=== PATIENT | female | born 1940 | race Caucasian/White ===

== ENCOUNTER → 2017-01-29 | Outpatient (CLI) | payer MEDICARE, OTHER ==
[2017-01-29 08:00] LABS: Basophils % (A) 1 %; CH 31.1; CHCM 33.2; Eosinophils # (A) 0.1 k/uL (0-0.7); Eosinophils % (A) 2 %; HCT 40.2 % (34.0-46.0); HDW 2.23; Luc # (Auto) 0.14; Luc % (Auto) 4; Lymphocytes % (A) 26 %; MCH 30.5 pg (25.0-35.0); MCHC 32.4 g/dL (31.0-37.0); MCV 94.2 fL (80.0-100.0); Mean Platelet Volume 6.2; Monocytes # (A) 0.3 k/uL (0-1.0); Monocytes % (A) 8 %; Neutrophils # (A) 2.2 k/uL (1.3-7.7); Neutrophils % (A) 60 %; RBC 4.27 m/uL (3.80-5.40); RDW 13.3 % (11.5-15.5); WBC 3.6 k/uL (3.8-10.6); WBC (Perox) 3.92
[2017-01-29 10:34] LABS: ALT 39 U/L (9-52); AST 25 U/L (14-36); Alkaline Phosphatase 62 U/L (38-126); Anion Gap 7 mmol/L; Blood Urea Nitrogen 16 mg/dL (7-17); Calcium 9.6 mg/dL (8.4-10.2); Carbon Dioxide 30 mmol/L (22-30); Chloride 98 mmol/L (98-107); Creatine Kinase 56 U/L (30-135); Glucose 82 mg/dL (74-99); Non-African American GFR(MDRD) >60 (>60 ml/min/1.73 sqM); Potassium 4.5 mmol/L (3.5-5.1); Sodium 135 mmol/L (137-145); Total Bilirubin 0.7 mg/dL (0.2-1.3); Total Protein 6.9 g/dL (6.3-8.2)
== END | disposition home or self-care (01) ==
LOC: LABWHC1 07:07
PROVIDERS: ATTEND Family Medicine
DX: E28.1 Androgen excess (principal); E03.9 Hypothyroidism, unspecified; H35.30 Unspecified macular degeneration
CPT/HCPCS: 36415; 80053; 82550; 82627; 84403; 84439; 84443; 85025

== ENCOUNTER → 2017-09-14 | Outpatient (CLI) | payer MEDICARE, OTHER ==
[2017-09-14 07:52] LABS: Basophils % (A) 1 %; CH 31.3; CHCM 32.5; Eosinophils % (A) 1 %; HCT 42.1 % (34.0-46.0); HDW 2.14; HGB 13.5 gm/dL (11.4-16.0); Luc # (Auto) 0.11; Luc % (Auto) 2; Lymphocytes # (A) 1.2 k/uL (1.0-4.8); Lymphocytes % (A) 23 %; MCH 31.1 pg (25.0-35.0); MCHC 32.2 g/dL (31.0-37.0); MCV 96.6 fL (80.0-100.0); Mean Platelet Volume 6.4; Monocytes # (A) 0.4 k/uL (0-1.0); Monocytes % (A) 7 %; Neutrophils # (A) 3.5 k/uL (1.3-7.7); Neutrophils % (A) 67 %; RBC 4.36 m/uL (3.80-5.40); RDW 13.3 % (11.5-15.5); WBC 5.2 k/uL (3.8-10.6); WBC (Perox) 5.11
[2017-09-14 08:10] LABS: ALT 34 U/L (9-52); AST 22 U/L (14-36); Alkaline Phosphatase 59 U/L (38-126); Anion Gap 7 mmol/L; Blood Urea Nitrogen 20 mg/dL (7-17); Calcium 9.6 mg/dL (8.4-10.2); Carbon Dioxide 28 mmol/L (22-30); Chloride 97 mmol/L (98-107); Cholesterol 185 mg/dL (<200); Glucose 88 mg/dL (74-99); HDL Cholesterol 95 mg/dL (40-60); Magnesium 1.6 mg/dL (1.6-2.3); Non-African American GFR(MDRD) >60 (>60 ml/min/1.73 sqM); Potassium 4.5 mmol/L (3.5-5.1); Sodium 132 mmol/L (137-145); Total Bilirubin 0.5 mg/dL (0.2-1.3); Total Protein 6.9 g/dL (6.3-8.2)
--- NOTE | 2017-09-16 10:19 | MM ---
Reason for exam: screening (asymptomatic). Last mammogram was performed 1 year ago. History: Patient is postmenopausal. Benign excisional biopsy of the right breast, 2002. Took estrogen for 26 years beginning at age 42. Physical Findings: A clinical breast exam by your physician is recommended on an annual basis and results should be correlated with mammographic findings. MG 3D Screening Mammo W/Cad Bilateral CC and MLO view(s) were taken. Prior study comparison: September 12, 2016, bilateral MG 3d screening mammo w/cad. September 10, 2015, bilateral MG screening mammo w CAD. There are scattered fibroglandular densities. No significant changes when compared with prior studies. ASSESSMENT: Negative, BI-RAD 1 RECOMMENDATION: Routine screening mammogram of both breasts in 1 year.
== END | disposition home or self-care (01) ==
LOC: RADMAMWWP 07:00
PROVIDERS: ATTEND Family Medicine
DX: Z12.31 Encounter for screening mammogram for malignant neoplasm of breast (principal); M89.9 Disorder of bone, unspecified; M85.9 Disorder of bone density and structure, unspecified; E28.1 Androgen excess; N39.3 Stress incontinence (female) (male); E78.00 Pure hypercholesterolemia, unspecified; Z78.0 Asymptomatic menopausal state
CPT/HCPCS: 80061; 80053; 82626; 82607; 83735; 84443; 85025; 82306; 84403; 83036; 77063; 36415; G0202

== ENCOUNTER → 2019-04-21 | Outpatient (CLI) | payer MEDICARE, OTHER ==
--- NOTE | 2019-04-22 07:11 | US ---
EXAMINATION TYPE: US carotid duplex BILAT DATE OF EXAM: 04/21/2019 COMPARISON: NONE CLINICAL HISTORY: I65.22 STENOSIS OF LT CAROTID ARTERY. Patient denies symptoms at this time. EXAM MEASUREMENTS: RIGHT: Peak Systolic Velocity (PSV) cm/sec ----- Right CCA: 71.0 ----- Right ICA: 63.6 ----- Right ECA: 66.0 ICA/CCA ratio: 0.9 RIGHT: End Diastole cm/sec ----- Right CCA: 13.8 ----- Right ICA: 9.5 ----- Right ECA: 0.0 LEFT: Peak Systolic Velocity (PSV) cm/sec ----- Left CCA: 50.3 ----- Left ICA: 82.0 ----- Left ECA: 34.3 ICA/CCA ratio: 1.6 LEFT: End Diastole cm/sec ----- Left CCA: 0.0 ----- Left ICA: 16.0 ----- Left ECA: 0.0 VERTEBRALS (direction of flow): Right Vertebral: Antegrade Left Vertebral: Antegrade Rhythm: Normal Irregular intimal wall thickening is noted at bilateral carotid bifurcation, but PSV is wnl bilateral ly. IMPRESSION: Moderate degree of grayscale atheromatous plaquing with no sonographically evident hemod ynamically significant stenosis within either visualized carotid arterial system. Criteria for Assigning % of Stenosis / Diameter reduction (Estimation based on the indirect measurements of the internal carotid artery velocities (ICA PSV). 1. Normal (no stenosis)=ICA PSV < 125 cm/s: ratio < 2.0: ICA EDV<40 cm/s. 2. Less than 50% stenosis=ICA PSV < 125 cm/s: ratio < 2.0: ICA EDV<40 cm/s. 3. 50 to 69% stenosis=ICA PSV of 125 to 230 cm/s: ration 2.0 ? 4.0: ICA EDV 40-100 cm/s. 4. Greater than 70% stenosis to near occlusion= ICA PSV > 230 cm/s: ratio > 4.0: ICA EDV > 100 cm/s. 5. Near occlusion= ICA PSV velocities may be low or undetectable: variable ratio and ICA EDV. 6. Total occlusion=unable to detect flow.
== END | disposition home or self-care (01) ==
LOC: RADUSWWP 15:42
PROVIDERS: ATTEND Family Medicine
DX: I67.2 Cerebral atherosclerosis (principal)
CPT/HCPCS: 93880

== ENCOUNTER 2021-05-23 15:19 | Emergency (ER) | payer MEDICARE, OTHER ==
[2021-05-23] MEDS ORDERED: MORPHINE SULFATE 2 MG/ML SYRINGE IVP STA (16:21)
--- NOTE | 2021-05-23 16:27 | ED ---
General Adult HPI - General Chief complaint: Altered Mental Status Stated complaint: Fall, hurting all over Time Seen by Provider: 05/23/21 16:15 Source: patient, family, RN notes reviewed, old records reviewed Mode of arrival: wheelchair Limitations: no limitations - History of Present Illness Initial comments: Patient is an 81-year-old female with past medical history remarkable for hypertension, thyroid disorder presents emergency department after being sent by her PCP. Patient's PCP, Dr. Rojo, called ahead to the patient fell on the May and had prior workups including CT head as well as multiple x- rays and [facility] with her normal period since that time, patient's been feeling more fatigued and will be intermittently having altered mental status where she curls up on the bed. Normally she is alert and oriented 4 and p erforms her normal ADLs. Since that time, she is complaining primarily of lower back pain, as well as some urinary retention. At the office today, hemoglobin was found to be low and creatinine high he sent her to the emergency department for Thomas placement, and neuro evaluation, as was a GI consult about the possibility of GI bleeding. We speak with patient currently, she is alert and oriented 4. She states she has no complaints other than some generalized abdominal pain. She is uncertain when she last had a bowel movement. She is also going of lower lumbar spine tenderness to palpation. She is otherwise able to move all 4 extremities, and states just a generalized feeling of fatigue. She has no other acute complaints at this time. Denies any fevers, chills, sick contacts. Denies any chest pain, shortness of breath. Denies any nausea or vomiting. - Related Data Home Medications Medication Instructions Recorded Confirmed Acetaminophen-Codeine 300-30mg 1 tab PO Q6H PRN 05/23/21 05/23/21 [Tylenol w/codeine #3] Ibuprofen [Motrin] 600 mg PO Q8HR PRN 05/23/21 05/23/21 Latanoprost [Xalatan 0.005%] 1 drop BOTH EYES HS 05/23/21 05/23/21 Oxybutynin Chloride [Ditropan] 2.5 mg PO BID 05/23/21 05/23/21 Allergies Allergy/AdvReac Type Severity Reaction Status Date / Time No Known Allergies Allergy Verified 07/15/21 17:21 Review of Systems ROS Statement: Those systems with pertinent positive or pertinent negative responses have been documented in the HPI. Review of Systems: CONST: Endorses fatigue EYES: Denies blurry vision ENT: Denies nasal congestion C/V: Denies Chest pain RESP: Denies shortness of breath GI: Endorses abdominal pain : Denies dysuria SKIN: Denies rash. MSK: Endorses lower back pain NEURO: Denies headache ROS Other: All systems not noted in ROS Statement are negative. Past Medical History Past Medical History: Thyroid Disorder History of Any Multi-Drug Resistant Organisms: None Reported Past Surgical History: Appendectomy, Hysterectomy Past Psychological History: No Psychological Hx Reported Smoking Status: Never smoker Past Alcohol Use History: None Reported Past Drug Use History: None Reported General Exam - General Exam Comments Initial Comments: General: Patient is curled up in a ball inside a building complaining of back pain. HEAD: Normal with no signs of head trauma. EYES: PERRLA, EOMI, conjunctiva normal, no discharge. Pupils are 3 mm and reactive bilaterally. ENT: Hearing grossly intact, normal oropharynx. RESPIRATORY: Clear breath sounds bilaterally. No wheezes, rales, or rhonchi. C/V: Regular rate and rhythm. S1 and S2 auscultated, no edema, peripheral pulses 2+ and intact throughout ABD: Abdomen is soft, nondistended. There is no guarding. Patient is tender to palpation generally, however primarily in the epigastric region. EXT: Patient is normal range of motion of all 4 extremities without any obvious deformity. She has no cervical or thoracic spine tenderness to palpation but does have lower lumbar spine tenderness to palpation in the midline. SKIN: Has a healing abrasion on the posterior scalp. Yamilet have been removed. NEURO: Alert and oriented 4. No focal sensory deficits at this time. She has no saddle anesthesias. Cerebellar function is normal as evident by normal finger-nose testing.weakness of BLLE 4/5. Limitations: no limitations Course Vital Signs 05/23/21 15:31 Temperature 98.1 F Pulse Rate 81 Respiratory 20 Rate Blood Pressure 129/62 O2 Sat by Pulse 97 Oximetry Medical Decision Making - Medical Decision Making Based on the patient's presentation and physical exam, we will obtain basic laboratory studies as well as cardiac workup in troponin, EKG, chest x-ray. The patient's nonspecific abdominal pain also obtain urine studies as well as a CT abdomen and pelvis. Patient will be given morphine for pain management, patient will receive a 1 L fluid bolus. We will place Thomas catheter that she is retaining urine. There agreement this plan. Patient's temperature studies are relatively unremarkable except for a mildly K high with an elevated BUN/creatinine 31 and 24.22. Patient's sodium is also mildly decreased at 135. She is not anemic is concerned by her PCP. Therefore I do not believe that a GI consult is quite at this time. Patient's urinalysis was remarkable for 1+ ketones. No signs of infection. Troponin is negative. Patient's chest x-ray shows no acute cardio pulmonary process. CT imaging was remarkable for no acute intra-abdominal process but there is a mildly displaced sacral fracture. EKG was unremarkable. Physical fracture, and with the patient's bilateral lower extremity weakness as well as her urinary retention concern me for possible cauda equina syndrome. We do not have neurosurgery in-house here or the ability to obtain an MRI and therefore I recommend the patient be transferred to [facility]. I spoke with the patient and her family member in agreement with this plan. I spoke with [facility] and they accepted the patient. Excepting physician is Dr. Lynne. Patient was therefore transferred to [facility] and serous condition. - Lab Data Result diagrams: 05/23/21 16:24 05/23/21 16:24 Lab Results 05/23/21 05/23/21 05/23/21 Range/Units 16:24 16:24 16:24 WBC 7.4 (3.8-10.6) k/uL RBC 3.87 (3.80-5.40) m/uL Hgb 12.0 (11.4-16.0) gm/dL Hct 35.3 (34.0-46.0) % MCV 91.1 (80.0-100.0) fL MCH 31.1 (25.0-35.0) pg MCHC 34.1 (31.0-37.0) g/dL RDW 13.2 (11.5-15.5) % Plt Count 270 (150-450) k/uL MPV 6.6 Neutrophils % 78 % Lymphocytes % 15 % Monocytes % 4 % Eosinophils % 1 % Basophils % 0 % Neutrophils # 5.8 (1.3-7.7) k/uL Lymphocytes # 1.1 (1.0-4.8) k/uL Monocytes # 0.3 (0-1.0) k/uL Eosinophils # 0.1 (0-0.7) k/uL Basophils # 0.0 (0-0.2) k/uL PT 9.7 (9.0-12.0) sec INR 0.9 (<1.2) APTT 23.8 (22.0-30.0) sec Sodium (137-145) mmol/L Potassium (3.5-5.1) mmol/L Chloride (98-107) mmol/L Carbon Dioxide (22-30) mmol/L Anion Gap mmol/L BUN (7-17) mg/dL Creatinine (0.52-1.04) mg/dL Est GFR (CKD-EPI)AfAm (>60 ml/min/1.73 sqM) Est GFR (CKD-EPI)NonAf (>60 ml/min/1.73 sqM) Glucose (74-99) mg/dL Calcium (8.4-10.2) mg/dL Total Bilirubin (0.2-1.3) mg/dL AST (14-36) U/L ALT (4-34) U/L Alkaline Phosphatase (38-126) U/L Ammonia (<30) umol/L Creatine Kinase (30-135) U/L Troponin I (0.000-0.034) ng/mL Total Protein (6.3-8.2) g/dL Albumin (3.5-5.0) g/dL Urine Color Yellow Urine Appearance Clear (Clear) Urine pH 5.5 (5.0-8.0) Ur Specific [place] 1.016 (1.001-1.035) Urine Protein Trace H (Negative) Urine Glucose (UA) Negative (Negative) Urine Ketones 1+ H (Negative) Urine Blood Negative (Negative) Urine Nitrite Negative (Negative) Urine Bilirubin Negative (Negative) Urine Urobilinogen <2.0 (<2.0) mg/dL Ur Leukocyte Esterase Negative (Negative) Urine Opiates Screen Detected H (NotDetected) Ur Oxycodone Screen Not Detected (NotDetected) Urine Methadone Screen Not Detected (NotDetected) Ur Propoxyphene Screen Not Detected (NotDetected) Ur Barbiturates Screen Not Detected (NotDetected) U Tricyclic Antidepress Not Detected (NotDetected) Ur Phencyclidine Scrn Not Detected (NotDetected) Ur Amphetamines Screen Not Detected (NotDetected) U Methamphetamines Scrn Not Detected (NotDetected) U Benzodiazepines Scrn Not Detected (NotDetected) Urine Cocaine Screen Not Detected (NotDetected) U Marijuana (THC) Screen Not Detected (NotDetected) Serum Alcohol mg/dL 05/23/21 05/23/21 05/23/21 Range/Units 16:24 16:24 16:24 WBC (3.8-10.6) k/uL RBC (3.80-5.40) m/uL Hgb (11.4-16.0) gm/dL Hct (34.0-46.0) % MCV (80.0-100.0) fL MCH (25.0-35.0) pg MCHC (31.0-37.0) g/dL RDW (11.5-15.5) % Plt Count (150-450) k/uL MPV Neutrophils % % Lymphocytes % % Monocytes % % Eosinophils % % Basophils % % Neutrophils # (1.3-7.7) k/uL Lymphocytes # (1.0-4.8) k/uL Monocytes # (0-1.0) k/uL Eosinophils # (0-0.7) k/uL Basophils # (0-0.2) k/uL PT (9.0-12.0) sec INR (<1.2) APTT (22.0-30.0) sec Sodium 135 L (137-145) mmol/L Potassium 4.1 (3.5-5.1) mmol/L Chloride 103 (98-107) mmol/L Carbon Dioxide 21 L (22-30) mmol/L Anion Gap 11 mmol/L BUN 31 H (7-17) mg/dL Creatinine 1.22 H (0.52-1.04) mg/dL Est GFR (CKD-EPI)AfAm 48 (>60 ml/min/1.73 sqM) Est GFR (CKD-EPI)NonAf 42 (>60 ml/min/1.73 sqM) Glucose 97 (74-99) mg/dL Calcium 9.4 (8.4-10.2) mg/dL Total Bilirubin 0.9 (0.2-1.3) mg/dL AST 30 (14-36) U/L ALT 21 (4-34) U/L Alkaline Phosphatase 116 (38-126) U/L Ammonia <9 (<30) umol/L Creatine Kinase 141 H (30-135) U/L Troponin I <0.012 (0.000-0.034) ng/mL Total Protein 7.1 (6.3-8.2) g/dL Albumin 4.3 (3.5-5.0) g/dL Urine Color Urine Appearance (Clear) Urine pH (5.0-8.0) Ur Specific [place] (1.001-1.035) Urine Protein (Negative) Urine Glucose (UA) (Negative) Urine Ketones (Negative) Urine Blood (Negative) Urine Nitrite (Negative) Urine Bilirubin (Negative) Urine Urobilinogen (<2.0) mg/dL Ur Leukocyte Esterase (Negative) Urine Opiates Screen (NotDetected) Ur Oxycodone Screen (NotDetected) Urine Methadone Screen (NotDetected) Ur Propoxyphene Screen (NotDetected) Ur Barbiturates Screen (NotDetected) U Tricyclic Antidepress (NotDetected) Ur Phencyclidine Scrn (NotDetected) Ur Amphetamines Screen (NotDetected) U Methamphetamines Scrn (NotDetected) U Benzodiazepines Scrn (NotDetected) Urine Cocaine Screen (NotDetected) U Marijuana (THC) Screen (NotDetected) Serum Alcohol <10 mg/dL - EKG Data -: EKG Interpreted by Me EKG Comments: 12-lead Electrocardiogram Interpretation Note EKG was reviewed and interpreted by myself. 12-lead ECG performed at 1602 is interpreted by me as revealing normal sinus rhythm at a rate of 85 beats per minute. Peggs is normal. MS intervals 152 ms, QRS duration 70 ms, QTc is 433 ms.. There were no ST or T wave abnormalities to suggest myocardial ischemia or injury. R wave progression across the precordium was satisfactory. By my interpretation this EKG is non-diagnostic for acute ischemia. Disposition Clinical Impression: Urinary retention, Sacral fracture, Lower extremity weakness, Fall Disposition: OTHER INSTITUTION NOT DEFINED Condition: Serious Referrals: Parvez Gregorio MD [Primary Care Provider] - 1-2 days - Out of Hospital Transfer - Req. Specs Out of Hospital Transfer - Requested Specifics: Other Emergency [facility] ([facility] MRI and neurosurgery not readily available.)
[2021-05-23 16:36] LABS: Basophils % (A) 0 %; Eosinophils # (A) 0.1 k/uL (0-0.7); Eosinophils % (A) 1 %; HCT 35.3 % (34.0-46.0); Lymphocytes # (A) 1.1 k/uL (1.0-4.8); Lymphocytes % (A) 15 %; MCH 31.1 pg (25.0-35.0); MCHC 34.1 g/dL (31.0-37.0); MCV 91.1 fL (80.0-100.0); Mean Platelet Volume 6.6; Monocytes # (A) 0.3 k/uL (0-1.0); Monocytes % (A) 4 %; Neutrophils # (A) 5.8 k/uL (1.3-7.7); Neutrophils % (A) 78 %; Platelet Count 270 k/uL (150-450); RBC 3.87 m/uL (3.80-5.40); RDW 13.2 % (11.5-15.5); WBC 7.4 k/uL (3.8-10.6)
[2021-05-23 16:46] LABS: INR 0.9 (<1.2); Prothrombin Time 9.7 sec (9.0-12.0)
[2021-05-23 16:47] LABS: Partial Thromboplastin Time 23.8 sec (22.0-30.0)
--- NOTE | 2021-05-23 16:49 | XR ---
EXAMINATION TYPE: XR chest 1V portable DATE OF EXAM: 05/23/2021 COMPARISON: NONE HISTORY: Altered mental status TECHNIQUE: Tom view FINDINGS: There is some elevation of the right diaphragm. Heart and mediastinum are normal. Lungs are clear of infiltrate. There is no pleural effusion. There are chest leads. IMPRESSION: Mild elevation of the right diaphragm could relate to partial paralysis. No acute lung disease. Normal heart.
[2021-05-23 16:51] LABS: AST 30 U/L (14-36); African American GFR (CKD) 48 (>60 ml/min/1.73 sqM); Albumin 4.3 g/dL (3.5-5.0); Alkaline Phosphatase 116 U/L (38-126); Anion Gap 11 mmol/L; Blood Urea Nitrogen 31 mg/dL (7-17); Calcium 9.4 mg/dL (8.4-10.2); Carbon Dioxide 21 mmol/L (22-30); Chloride 103 mmol/L (98-107); Glucose 97 mg/dL (74-99); Non-African American GFR(CKD) 42 (>60 ml/min/1.73 sqM); Potassium 4.1 mmol/L (3.5-5.1); Sodium 135 mmol/L (137-145); Total Bilirubin 0.9 mg/dL (0.2-1.3); Total Protein 7.1 g/dL (6.3-8.2)
[2021-05-23 16:52] LABS: ALT 21 U/L (4-34); Alcohol <10 mg/dL; Creatine Kinase 141 U/L (30-135)
[2021-05-23] MEDS ORDERED: SODIUM CHLORIDE 0.9% 1,000 ML IV ONE (17:02)
[2021-05-23 17:20] LABS: Appearance,Urine Clear (Clear); Bilirubin,Urine Negative (Negative); Blood,Urine Negative (Negative); Color,Urine Yellow; Glucose,Urine (UA) Negative (Negative); Ketones,Urine 1+ (Negative); Leukocyte Esterase,Urine Negative (Negative); Nitrite,Urine Negative (Negative); PH, Urine 5.5 (5.0-8.0); Protein,Urine Trace (Negative); Specific Gravity,Urine 1.016 (1.001-1.035); Urobilinogen,Urine <2.0 mg/dL (<2.0)
[2021-05-23 17:30] LABS: Amphetamine Screen,Urine Not Detected (NotDetected); Barbiturate Screen,Urine Not Detected (NotDetected); Benzodiazepines Screen,Urine Not Detected (NotDetected); Cocaine Screen,Urine Not Detected (NotDetected); Methadone Screen, Urine Not Detected (NotDetected); Opiate Screen,Urine Detected (NotDetected); Oxycodone Screen, Urine Not Detected (NotDetected); Phencyclidine Screen,Urine Not Detected (NotDetected); Tricyclic Antidepressant,Urine Not Detected (NotDetected); Urn Cannabinoid Scrn Not Detected (NotDetected)
--- NOTE | 2021-05-23 17:57 | CT ---
EXAMINATION TYPE: CT abdomen pelvis w con DATE OF EXAM: 05/23/2021 COMPARISON: None HISTORY: Right sided flank and buttock pain post fall. CT DLP: 1989.2 mGycm Automated exposure control for dose reduction was used. CONTRAST: Performed with IV Contrast, patient injected with 50 mL of Isovue 300. The lung bases are clear. There is no pleural effusion. Heart size is normal. There is no pericardial effusion. Liver spleen appear intact. Stomach is intact. There is no pancreatic mass. Gallbladder ap pears normal. The bile ducts are not dilated. There is no adrenal mass. Kidneys show satisfactory contrast opacification. There is no hydronephrosi s. Ureters are not dilated. There is no retroperitoneal adenopathy. There is Thomas catheter in the ur inary bladder. Bladder is empty. There is no inguinal hernia. There is no free fluid in the pelvis. I see no evidence of a pelvic mass. There is no mesenteric edema. There is no ascites or free air. There is no evidence of bowel obstruct ion. There is lumbar mild levoscoliosis. There are spondylotic changes in the mid and lower lumbar spine. Appendix not definitely seen. There is no sign of thickened appendix. There is hypertrophic spurring of the acetabulum. There is spurring on the femoral heads. There is mi ld hip joint space narrowing on the left side. There is transverse fracture through the S3 vertebral body with cortical buckling anteriorly. There is a few millimeter anterior displacement of the lower sacral fragment. IMPRESSION: There is mildly displaced sacral fracture. Spondylotic changes in the lumbar spine with levoscoliosis. 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 No sign of traumatic injury within the abdomen and pelvis.
--- NOTE | 2021-05-23 18:05 | CT ---
EXAMINATION TYPE: CT lumbar spine w con DATE OF EXAM: 05/23/2021 COMPARISON: None HISTORY: Right sided flank and buttock pain post fall. CT DLP: 1989.2 mGycm Automated exposure control for dose reduction was used. CONTRAST: Performed with IV Contrast, patient injected with 50 mL of Isovue 300. Images obtained from the level of T11-S1 vertebra. There is a mild lumbar levoscoliosis. There is some degenerative disc space narrowing at L to 3 and L 4-5 with vacuum disc and spur formation. There is a few millimeter anterior subluxation of L3 in rela tion to L4. The posterior elements are intact. There is no lumbar paraspinal mass. IMPRESSION: Spondylotic changes. Mild levoscoliosis. Degenerative first-degree L3-4 spondylolisthesis. No fractur e seen.
[2021-05-23 19:18] VITALS: BP 139/71; PULSE 88; RESP 18
[2021-05-23] MEDS ORDERED: FAMOTIDINE 20 MG/2 ML VIAL IV STA (19:36)
[2021-05-23] MEDS ORDERED: MORPHINE SULFATE 4 MG/ML SYRINGE IVP STA (19:36)
[2021-05-23 19:52] VITALS: TEMP 98.5
== END 2021-05-23 19:52 | disposition other institution (70) ==
LOC: EC 15:19
DX: S32.10XA Unspecified fracture of sacrum, initial encounter for closed fracture (principal); R53.1 Weakness; R33.9 Retention of urine, unspecified; R41.82 Altered mental status, unspecified; I10 Essential (primary) hypertension; Z79.899 Other long term (current) drug therapy; W19.XXXA Unspecified fall, initial encounter; Y92.89 Other specified places as the place of occurrence of the external cause
CPT/HCPCS: 36415; 93005; 80053; 82140; 82550; 84484; 85025; 85610; 85730; 81003; 87040; 80306; 71045; 72132; 74177; 99285; 96374; 96375; 96376; 96361; G0480; J2270 ×2; Q9967; 80320

== ENCOUNTER 2022-06-20 17:01 | Inpatient (IN) | payer MEDICARE, OTHER ==
--- NOTE | 2022-06-20 17:43 | ED ---
General Adult HPI - General Chief complaint: Altered Mental Status Stated complaint: AMS Time Seen by Provider: 06/20/22 17:17 Source: EMS Mode of arrival: EMS - History of Present Illness Initial comments: Dictation was produced using [facility] dictation software. please excuse any grammatical, word or spelling errors. Chief Complaint: 82-year-old female brought to the emergency department for altered mental status. History of Present Illness: [id number] female she was brought here from [facility] for altered mental status. Patient is brought in by EMS. He is unclear what patient's last known well was. It's unclear what patient's baseline is. Son is at the bedside. He visits her once in a while but not very often. Son reports at the bedside the patient does appear to be confused. She normally is able to have normal conversation. She is at [facility] for disability secondary to hip injury. EMS is concerned that patient has been given edible marijuana by a visiting boyfriend. Son is unsure of any other visitors besides his self and his sister. Patient is an unreliable historian at this time. Transfer documentation says that patient was sent here for confusion and bizarre behavior. The ROS documented in this emergency department record has been reviewed and confirmed by me. Those systems with pertinent positive or negative responses have been documented in the HPI. All other systems are other negative and/or noncontributory. PHYSICAL EXAM: General Impression: Alert and oriented, not in acute distress HEENT: Normocephalic atraumatic, extra-ocular movements intact, pupils equal and reactive to light bilaterally, mucous membranes moist. Cardiovascular: Heart regular rate and rhythm Chest: Able to complete full sentences, no retractions, no tachypnea Abdomen: abdomen soft, non-tender, non-distended, no organomegaly Musculoskeletal: Pulses present and equal in all extremities, no peripheral edema Motor: no focal deficits noted Neurological: CN II-XII grossly intact, aphasic, dysarthric, drift to the right lower extremity Skin: Intact with no visualized rashes Psych: Normal affect and mood ED course: 82-year-old female presents to the emergency department for altered mental status. Clinical presentation concerning for cerebrovascular accident. Vital signs upon arrival are within acceptable limits. Laboratory evaluation obtained. CBC, coag panel, metabolic panel is unremarkable. Abdominal labs negative. Chest x-ray is nonacute. Computed tomography scan of the brain shows no acute processes. CT angiography of the head and neck shows no large vessel occlusion. Patient reevaluated at the bed side still aphasic though improved. Patient given aspirin ambulated with a consultation to neurology. - Related Data Home Medications Medication Instructions Recorded Confirmed Acetaminophen-Codeine 300-30mg 1 tab PO Q6H PRN 05/23/21 06/20/22 [Tylenol w/codeine #3] Latanoprost [Xalatan 0.005%] 1 drop BOTH EYES HS 05/23/21 06/20/22 Acetaminophen Tab [Tylenol] 650 mg PO Q4H PRN 06/20/22 06/20/22 Ozan Breakfast Essentials 1 packet PO BID@0800,1700 06/20/22 06/20/22 DULoxetine HCL [Cymbalta] 60 mg PO DAILY@0800 06/20/22 06/20/22 Ferrous Sulfate [Feosol] 325 mg PO DAILY@1700 06/20/22 06/20/22 Mag Hydrox/Al Hydrox/Simeth 30 ml PO Q6H PRN 06/20/22 06/20/22 [Maalox] Magic Cup 1 dose PO DAILY@1200 06/20/22 06/20/22 Magnesium Hydroxide [Milk of 7,200 mg PO Q48H PRN 06/20/22 06/20/22 Magnesia Concentrate] Magnesium Oxide [Mag-Ox] 400 mg PO BID@0800,1700 06/20/22 06/20/22 Na Phos,M-B/Na Phos,Di-Ba [Fleet 133 ml RECTAL DAILY PRN 06/20/22 06/20/22 Adult] Naproxen [Naprosyn] 500 mg PO BID@0800,1700 06/20/22 06/20/22 Sennosides/Docusate Sodium 2 tab PO HS PRN 06/20/22 06/20/22 [Senna-S 8.6-50 mg Tablet] bisacodyL [Dulcolax] 10 mg RECTAL DAILY PRN 06/20/22 06/20/22 traMADol HCL 50 mg PO Q6H PRN 06/20/22 06/20/22 Allergies Allergy/AdvReac Type Severity Reaction Status Date / Time No Known Allergies Allergy Verified 06/20/22 17:25 Review of Systems ROS Statement: Those systems with pertinent positive or pertinent negative responses have been documented in the HPI. ROS Other: All systems not noted in ROS Statement are negative. Past Medical History Past Medical History: Thyroid Disorder History of Any Multi-Drug Resistant Organisms: None Reported Past Surgical History: Appendectomy, Hysterectomy Past Psychological History: No Psychological Hx Reported Smoking Status: Never smoker Past Alcohol Use History: None Reported Past Drug Use History: None Reported Course Vital Signs 06/20/22 06/20/22 17:09 19:26 Temperature 98.4 F Pulse Rate 62 75 Respiratory 18 18 Rate Blood Pressure 139/62 135/65 O2 Sat by Pulse 96 96 Oximetry Medical Decision Making - Lab Data Result diagrams: 06/20/22 17:53 06/20/22 17:53 Lab Results 06/20/22 06/20/22 06/20/22 Range/Units 17:53 17:53 17:53 WBC 6.7 (3.8-10.6) k/uL RBC 3.94 (3.80-5.40) m/uL Hgb 11.4 (11.4-16.0) gm/dL Hct 35.5 (34.0-46.0) % MCV 90.3 (80.0-100.0) fL MCH 29.0 (25.0-35.0) pg MCHC 32.1 (31.0-37.0) g/dL RDW 13.7 (11.5-15.5) % Plt Count 339 (150-450) k/uL MPV 6.9 Neutrophils % 67 % Lymphocytes % 23 % Monocytes % 6 % Eosinophils % 2 % Basophils % 1 % Neutrophils # 4.5 (1.3-7.7) k/uL Lymphocytes # 1.5 (1.0-4.8) k/uL Monocytes # 0.4 (0-1.0) k/uL Eosinophils # 0.1 (0-0.7) k/uL Basophils # 0.0 (0-0.2) k/uL PT 10.4 (9.0-12.0) sec INR 1.0 (<1.2) APTT 25.8 (22.0-30.0) sec Sodium 133 L (137-145) mmol/L Potassium 3.8 (3.5-5.1) mmol/L Chloride 98 (98-107) mmol/L Carbon Dioxide 24 (22-30) mmol/L Anion Gap 11 mmol/L BUN 23 H (7-17) mg/dL Creatinine 0.51 L (0.52-1.04) mg/dL Est GFR (CKD-EPI)AfAm >90 (>60 ml/min/1.73 sqM) Est GFR (CKD-EPI)NonAf >90 (>60 ml/min/1.73 sqM) Glucose 99 (74-99) mg/dL Calcium 9.1 (8.4-10.2) mg/dL Total Bilirubin 0.5 (0.2-1.3) mg/dL AST 30 (14-36) U/L ALT 13 (4-34) U/L Alkaline Phosphatase 94 (38-126) U/L Total Protein 6.2 L (6.3-8.2) g/dL Albumin 3.4 L (3.5-5.0) g/dL Disposition Clinical Impression: CVA (cerebral vascular accident) Disposition: ADMITTED IP TO THIS [facility] Condition: Fair Referrals: Parvez Gregorio MD [Primary Care Provider] - 1-2 days Time of Disposition: 20:12
[2022-06-20 18:02] LABS: Basophils % (A) 1 %; Eosinophils # (A) 0.1 k/uL (0-0.7); Eosinophils % (A) 2 %; HCT 35.5 % (34.0-46.0); HGB 11.4 gm/dL (11.4-16.0); Lymphocytes # (A) 1.5 k/uL (1.0-4.8); Lymphocytes % (A) 23 %; MCHC 32.1 g/dL (31.0-37.0); MCV 90.3 fL (80.0-100.0); Mean Platelet Volume 6.9; Monocytes # (A) 0.4 k/uL (0-1.0); Monocytes % (A) 6 %; Neutrophils # (A) 4.5 k/uL (1.3-7.7); Neutrophils % (A) 67 %; Platelet Count 339 k/uL (150-450); RBC 3.94 m/uL (3.80-5.40); RDW 13.7 % (11.5-15.5); WBC 6.7 k/uL (3.8-10.6)
[2022-06-20 18:12] LABS: ALT 13 U/L (4-34); AST 30 U/L (14-36); African American GFR (CKD) >90 (>60 ml/min/1.73 sqM); Albumin 3.4 g/dL (3.5-5.0); Alkaline Phosphatase 94 U/L (38-126); Anion Gap 11 mmol/L; Blood Urea Nitrogen 23 mg/dL (7-17); Calcium 9.1 mg/dL (8.4-10.2); Carbon Dioxide 24 mmol/L (22-30); Chloride 98 mmol/L (98-107); Glucose 99 mg/dL (74-99); Non-African American GFR(CKD) >90 (>60 ml/min/1.73 sqM); Partial Thromboplastin Time 25.8 sec (22.0-30.0); Potassium 3.8 mmol/L (3.5-5.1); Prothrombin Time 10.4 sec (9.0-12.0); Sodium 133 mmol/L (137-145); Total Bilirubin 0.5 mg/dL (0.2-1.3); Total Protein 6.2 g/dL (6.3-8.2)
--- NOTE | 2022-06-20 19:08 | CT ---
EXAMINATION TYPE: CT brain wo con CT DLP: 1206.6 mGycm, Automated exposure control for dose reduction was used. DATE OF EXAM: 06/20/2022 6:37 PM COMPARISON: CTA head and neck 06/20/2022 CLINICAL INDICATION:Female, 82 years old with history of altered mental status, AMS, neurologic defic its TECHNIQUE: Brain: Axial CT images of the brain were obtained with coronal and sagittal reformats created and rev iewed. Contrast used: None. Oral contrast used: None. FINDINGS: Brain: Extra-axial spaces: No abnormal extra-axial fluid collections. Ventricular system: Dilatation of the third and lateral ventricles, likely sequelae of generalized ce ntral cerebral atrophy. No acute process. Cerebral parenchyma: No acute intraparenchymal hemorrhage or mass effect. The boykin-white junction is well differentiated. Scattered hypoattenuating areas are seen within the white matter. Cerebellum: Unremarkable. Mass effect: No evidence of midline shift. Intracranial vasculature: Atherosclerotic calcifications of the intracranial vessels. Soft tissues: Normal. Calvarium/osseous structures: No depressed skull fracture. Paranasal sinuses and mastoid air cells: Mild scattered paranasal sinus disease. Visualized orbits: Bilateral aphakia IMPRESSION: 1. No acute intracranial process. 2. Nonspecific white matter changes, likely secondary to chronic small vessel ischemic disease.
--- NOTE | 2022-06-20 19:10 | XR ---
EXAMINATION TYPE: XR chest 1V portable DATE OF EXAM: 06/20/2022 6:17 PM COMPARISON: Chest x-ray 05/23/2021 TECHNIQUE: XR chest 1V portable . CLINICAL INDICATION:Female, 82 years old with history of altered mental status; FINDINGS: Lungs/Pleura: Eventration of the right hemidiaphragm. Mild subsegmental atelectasis of the right lung base. No focal airspace consolidation. No pneumothorax. No sizable pleural effusion. Pulmonary vascularity: Unremarkable. Heart/mediastinum: Cardiomediastinal silhouette is unremarkable. Musculoskeletal: No acute osseous pathology. IMPRESSION: No acute cardiopulmonary disease/process.
--- NOTE | 2022-06-20 19:18 | CT ---
EXAMINATION TYPE: CT angio head neck CT DLP: 376.1 mGycm, Automated exposure control for dose reduction was used. DATE OF EXAM: 06/20/2022 6:55 PM COMPARISON: . CLINICAL INDICATION:Female, 82 years old with history of neurologic defectis; PHH, AMS, neurologic de ficit TECHNIQUE: Axially acquired helical CT angiogram of the head and neck was obtained with contrast. Axi al images are supplemented with 3D reconstructions [facility] criteria used. Contrast used:65 mL of Isovue 370 with IV Contrast, Oral contrast used: None. FINDINGS: CTA HEAD: No evidence of acute intracranial hemorrhage, mass effect, or midline shift. The ventricles, sulci, a nd cisterns are unremarkable. The visualized portions of the internal carotid arteries, middle cerebral arteries, and posterior cer ebral arteries are patent. Incidentally noted left posterior cerebral artery. The left anterior cerebral artery is asymmetrically diminutive in size, but widely patent. Right anterior cerebral art sal is unremarkable. The basilar and vertebral arteries are patent. CTA NECK: Right Carotid System: The common carotid artery and external carotid artery are patent. The carotid bifurcation demonstrate s no evidence of hemodynamically significant stenosis. Minimal calcified atherosclerosis at the carot id bulb without significant luminal narrowing. Minimal calcification of the proximal internal carotid artery without significant luminal narrowing. The remaining portions of the internal carotid artery demonstrate normal size without significant narrowing. Left Carotid System: The common carotid artery and external carotid artery are patent. The carotid bifurcation demonstrate s no evidence of hemodynamically significant stenosis. Mild to moderate atherosclerotic calcification s are present at the left carotid bulb. Moderate calcifications of the internal carotid artery near i ts bifurcation The remaining portions of the internal carotid artery demonstrate normal size without significant narrowing. Vertebral arteries are patent without evidence hemodynamically significant stenosis. There is a three-vessel aortic arch. The origins of the great vessels are patent scattered atheroscle rotic calcifications are noted. No evidence of hemodynamically significant stenosis. IMPRESSION: 1. No evidence of dissection of the cervical internal carotid arteries or vertebral arteries or any e vidence of significant stenosis at the carotid bifurcations. 2. No evidence of intracranial high-grade stenosis or intracranial aneurysm. 3. Mild to moderate atherosclerotic calcifications of the arterial vasculature.
[2022-06-20] MEDS ORDERED: ASPIRIN 81 MG PO STA (20:00)
[2022-06-20 20:15] LABS: Amphetamine Screen,Urine Not Detected (NotDetected); Appearance,Urine Turbid (Clear); Barbiturate Screen,Urine Not Detected (NotDetected); Benzodiazepines Screen,Urine Not Detected (NotDetected); Bilirubin,Urine Negative (Negative); Blood,Urine Large (Negative); Cocaine Screen,Urine Not Detected (NotDetected); Color,Urine Yellow; Glucose,Urine (UA) Negative (Negative); Ketones,Urine 1+ (Negative); Leukocyte Esterase,Urine Large (Negative); Methadone Screen, Urine Not Detected (NotDetected); Mucus,Urine Occasional /hpf; Nitrite,Urine Negative (Negative); Opiate Screen,Urine Not Detected (NotDetected); Oxycodone Screen, Urine Not Detected (NotDetected); Phencyclidine Screen,Urine Not Detected (NotDetected); Protein,Urine 1+ (Negative); RBC,Urine >182 /hpf (0-5); Specific Gravity,Urine 1.042 (1.001-1.035); Tricyclic Antidepressant,Urine Not Detected (NotDetected); Urn Cannabinoid Scrn Not Detected (NotDetected); Urobilinogen,Urine <2.0 mg/dL (<2.0); WBC,Urine >182 /hpf (0-5)
[2022-06-20] MEDS ORDERED: cefTRIAXone IN SWFI 1,000 MG/10 ML SYRINGE IVP STA (20:43)
[2022-06-21] MEDS ORDERED: bisacodyL 10 MG SUPP RECTAL PRN (08:48)
[2022-06-21] MEDS ORDERED: MAG HYDROX/AL HYDROX/SIMETH 30 ML CUP PO PRN (08:48)
[2022-06-21] MEDS ORDERED: ACETAMINOPHEN TAB 325 MG TAB PO PRN (08:48)
--- NOTE | 2022-06-21 08:51 | P.HPIM ---
History of Present Illness This is a pleasant 82 is old female with past medical history of hypothyroidism, depression, anemia patient comnes in from [facility] for Altered mental status. Patient is awake and alert and follow-up commands however she thought she is in [facility], she thought is 2013 and she could not remember the name of the president. She thought she lives at home and she walks normal by herself, however per documents patient came in from [facility] for this debility secondary to hip injury. She states she is in hospital because she does not feel good, however she could not elaborate more. Systemic review was negative, she denies headache or dizziness or weakness or numbness. No blurred vision. No chest pain or dyspnea. No diarrhea or vomiting. No abdominal pain. No dysuria or urgency. Patient is nonsmoker, she denies alcohol. She has mild bilateral leg weakness. Vitals stable, afebrile. Labs show an unremarkable CBC, INR, BMP, liver enzymes. Sodium 133. Urine analysis is suspicious for infection Urine drug screen is negative. CT of the brain: No acute intracranial process. CTA of the head: No evidence of acute intracranial hemorrhage, mass effect or midline shift. CT of the neck, no evidence of dissection or acute abnormality Chest x-ray: No acute process. An emergency room patient received ceftriaxone and aspirin Neurologist was consulted for possible stroke Past Medical History Past Medical History: Thyroid Disorder History of Any Multi-Drug Resistant Organisms: None Reported Past Surgical History: Appendectomy, Hysterectomy Past Psychological History: No Psychological Hx Reported Smoking Status: Never smoker Past Alcohol Use History: None Reported Past Drug Use History: None Reported Medications and Allergies Home Medications Medication Instructions Recorded Confirmed Type Acetaminophen-Codeine 300-30mg 1 tab PO Q6H PRN 05/23/21 06/20/22 History [Tylenol w/codeine #3] Latanoprost [Xalatan 0.005%] 1 drop BOTH EYES HS 05/23/21 06/20/22 History Acetaminophen Tab [Tylenol] 650 mg PO Q4H PRN 06/20/22 06/20/22 History [place] Breakfast Essentials 1 packet PO BID@0800,1700 06/20/22 06/20/22 History DULoxetine HCL [Cymbalta] 60 mg PO DAILY@0800 06/20/22 06/20/22 History Ferrous Sulfate [Feosol] 325 mg PO DAILY@1700 06/20/22 06/20/22 History Mag Hydrox/Al Hydrox/Simeth 30 ml PO Q6H PRN 06/20/22 06/20/22 History [Maalox] Magic Cup 1 dose PO DAILY@1200 06/20/22 06/20/22 History Magnesium Hydroxide [Milk of 7,200 mg PO Q48H PRN 06/20/22 06/20/22 History Magnesia Concentrate] Magnesium Oxide [Mag-Ox] 400 mg PO BID@0800,1700 06/20/22 06/20/22 History Na Phos,M-B/Na Phos,Di-Ba [Fleet 133 ml RECTAL DAILY PRN 06/20/22 06/20/22 History Adult] Naproxen [Naprosyn] 500 mg PO BID@0800,1700 06/20/22 06/20/22 History Sennosides/Docusate Sodium 2 tab PO HS PRN 06/20/22 06/20/22 History [Senna-S 8.6-50 mg Tablet] bisacodyL [Dulcolax] 10 mg RECTAL DAILY PRN 06/20/22 06/20/22 History traMADol HCL 50 mg PO Q6H PRN 06/20/22 06/20/22 History Allergies Allergy/AdvReac Type Severity Reaction Status Date / Time No Known Allergies Allergy Verified 06/20/22 17:25 Physical Exam Vitals: Vital Signs Temp Pulse Resp BP Pulse Ox 06/21/22 05:43 77 16 108/55 97 06/21/22 03:11 88 18 130/80 99 06/20/22 22:25 80 18 143/69 96 06/20/22 19:26 75 18 135/65 96 06/20/22 17:09 98.4 F 62 18 139/62 96 Intake and Output 06/20/22 06/21/22 06/21/22 22:59 06:59 14:59 Other: Weight 58.967 kg -GENERAL: The patient is alert and oriented x0-1 partially, not in any acute distress. Generally weak HEENT: Pupils are round and equally reacting to light. EOMI. No scleral icterus. No conjunctival pallor. Normocephalic, atraumatic. No pharyngeal erythema. No thyromegaly. CARDIOVASCULAR: S1 and S2 present. No murmurs, rubs, or gallops. PULMONARY: Chest is clear to auscultation, no wheezing or crackles. ABDOMEN: Soft, nontender, nondistended, normoactive bowel sounds. No palpable organomegaly. MUSCULOSKELETAL: No joint swelling or deformity. EXTREMITIES: No cyanosis, clubbing, or pedal edema. -NEUROLOGICAL: Gross neurological examination did not reveal any focal deficits. Bilateral leg weakness symmetrical , sensation intact. Meningeal signs are absent SKIN: No rashes. no petechiae. Results CBC & Chem 7: 06/20/22 17:53 06/20/22 17:53 Labs: Abnormal Lab Results - Last 24 Hours (Table) 06/20/22 06/20/22 Range/Units 17:53 19:23 Sodium 133 L (137-145) mmol/L BUN 23 H (7-17) mg/dL Creatinine 0.51 L (0.52-1.04) mg/dL Total Protein 6.2 L (6.3-8.2) g/dL Albumin 3.4 L (3.5-5.0) g/dL Urine Appearance Turbid H (Clear) Ur Specific [place] 1.042 H (1.001-1.035) Urine Protein 1+ H (Negative) Urine Ketones 1+ H (Negative) Urine Blood Large H (Negative) Ur Leukocyte Esterase Large H (Negative) Urine RBC >182 H (0-5) /hpf Urine WBC >182 H (0-5) /hpf Urine WBC Clumps Many H (None) /hpf Urine Mucus Occasional H (None) /hpf Microbiology - Last 24 Hours (Table) 06/20/22 19:23 Urine Culture - Preliminary Urine,Catheterized Assessment and Plan Assessment: Acute urinary tract infection Altered mental status, mostly secondary to metabolic/toxic encephalopathy. Ruled out intracranial lesion Hypothyroidism Depression Anemia Possible elements of dementia Patient with history of carotid artery stenosis Plan: This is a pleasant 82 yo female who presents with acute stroke continue with ceftriaxone follow-up urine culture Check bladder scan Continue with aspirin Neurology consult Continue naproxen and avoid NSAIDs Limit narcotics Labs and medication were reviewed.. Continue same treatment. Continue with symptomatic treatment. Resume home medication. Monitor lytes and vitals. DVT and GI prophylaxis. Further recommendations as per clinical course of the patient DVT prophylaxis: Subcutaneous heparin GI Prophylaxis: Pepcid
--- NOTE | 2022-06-21 09:33 | XR ---
EXAMINATION TYPE: AP view pelvis and 2 views each hip DATE OF EXAM: 06/21/2022 COMPARISON: NONE HISTORY: 82-year-old female with fall and pain FINDINGS: Transitional lumbosacral segment with bilateral L5 age-related station. There is moderate to severe d egenerative change of the left hip with spurring, joint space narrowing, and subchondral sclerosis. T here is prior right hip bipolar hemiarthroplasty. The femoral stem component appears well seated. No periprosthetic fracture is seen. Mild degenerative change of the SI joints which otherwise appear int act as does the pubic symphysis. Contrast material collected within the pelvis from prior CT examinat ions. No acute fracture, subluxation, or dislocation seen. IMPRESSION: 1. Uncomplicated right hip bipolar hemiarthroplasty. 2. Moderate to severe left hip OA. 3. No acute osseous abnormality seen.
[2022-06-21 09:52] LABS: Chol/HDL Ratio 3.44 Ratio; LDL Cholesterol,Calculated 93.9 mg/dL (0.0-131.0); VLDL Calculation 16.78 mg/dL (5.00-40.00)
--- NOTE | 2022-06-21 14:04 | P.CNNES ---
History of Present Illness Consult date: 06/21/22 Reason for Consult: CVA/TIA History of Present Illness: The patient is an 82-year-old female who is seen in neurologic consultation on June 21, 2022, via teleneurology. The patient's daughter is present at the bedside at the time of the evaluation. The daughter reports that last Thursday she visited her mother, who lives in a skilled nursing. She found her mother to be groggy and confused. The next day, she was back to her baseline and able to have a conversation on the telephone. Thursday and Thursday of last week, the patient was not answering her telephone and so the patient's daughter called the nurse to check on the patient and her phone. The patient's own was working however the patient reportedly would not talk on the phone. Then this past , the patient was awake and alert. Thursday she was confused and was sent into the emergency department via ambulance, by the skilled nursing. According to the patient's daughter, the patient has been having difficulty "forming words". She does report that her mother is a little bit more alert and aware today. CT scan of the brain performed in the emergency department revealed no signs of acute hemorrhage or infarct. CT angiogram of the head and neck revealed no si gnificant stenosis or large vessel occlusion. Urinalysis performed in the emergency department revealed evidence of a severe urinary tract infection. The patient is unable to provide any history at this time. Review of Systems unable to obtain secondary to mental status the patient Past Medical History Past Medical History: Thyroid Disorder History of Any Multi-Drug Resistant Organisms: None Reported Past Surgical History: Appendectomy, Hysterectomy Past Psychological History: No Psychological Hx Reported Smoking Status: Never smoker Past Alcohol Use History: None Reported Past Drug Use History: None Reported Medications and Allergies Home Medications Medication Instructions Recorded Confirmed Type Acetaminophen-Codeine 300-30mg 1 tab PO Q6H PRN 05/23/21 06/20/22 History [Tylenol w/codeine #3] Latanoprost [Xalatan 0.005%] 1 drop BOTH EYES HS 05/23/21 06/20/22 History Acetaminophen Tab [Tylenol] 650 mg PO Q4H PRN 06/20/22 06/20/22 History [place] Breakfast Essentials 1 packet PO BID@0800,1700 06/20/22 06/20/22 History DULoxetine HCL [Cymbalta] 60 mg PO DAILY@0800 06/20/22 06/20/22 History Ferrous Sulfate [Feosol] 325 mg PO DAILY@1700 06/20/22 06/20/22 History Mag Hydrox/Al Hydrox/Simeth 30 ml PO Q6H PRN 06/20/22 06/20/22 History [Maalox] Magic Cup 1 dose PO DAILY@1200 06/20/22 06/20/22 History Magnesium Hydroxide [Milk of 7,200 mg PO Q48H PRN 06/20/22 06/20/22 History Magnesia Concentrate] Magnesium Oxide [Mag-Ox] 400 mg PO BID@0800,1700 06/20/22 06/20/22 History Na Phos,M-B/Na Phos,Di-Ba [Fleet 133 ml RECTAL DAILY PRN 06/20/22 06/20/22 History Adult] Naproxen [Naprosyn] 500 mg PO BID@0800,1700 06/20/22 06/20/22 History Sennosides/Docusate Sodium 2 tab PO HS PRN 06/20/22 06/20/22 History [Senna-S 8.6-50 mg Tablet] bisacodyL [Dulcolax] 10 mg RECTAL DAILY PRN 06/20/22 06/20/22 History traMADol HCL 50 mg PO Q6H PRN 06/20/22 06/20/22 History Allergies Allergy/AdvReac Type Severity Reaction Status Date / Time No Known Allergies Allergy Verified 06/20/22 17:25 Physical Examination - Vital Signs Vital Signs: Vital Signs Temp Pulse Pulse Resp BP BP Pulse Ox 06/21/22 08:00 98.3 F 74 16 130/58 98 06/21/22 05:43 77 16 108/55 97 06/21/22 03:11 88 18 130/80 99 06/20/22 22:25 80 18 143/69 96 06/20/22 19:26 75 18 135/65 96 06/20/22 17:09 98.4 F 62 18 139/62 96 Intake and Output 06/20/22 06/21/22 06/21/22 22:59 06:59 14:59 Other: Weight 58.967 kg Gen.: The patient is reclining on the bed. She is seen in the emergency department. She is well-nourished and in no acute distress. HEENT: Head is atraumatic, normocephalic. Fundus not visualized. There is no scleral icterus. Mucous membranes are moist. Neck: Supple, without carotid bruits Heart: Regular rate and rhythm Lungs: Clear to auscultation Extremities: There are abrasions on the knees bilaterally. Neurological examination Mental status: At the onset of the evaluation, the patient is unable to state her name, her daughter, her date of or age. The patient follows commands intermittently. She does wiggle fingers and toes to command. The patient is reportedly hard of hearing. At the end of the evaluation, the patient is able to state her name, date of and follow instructions. She states that her age is "54". Cranial nerves: Pupils are equal at 3 mm and reactive. Visual mclean are grossly intact. Extraocular movements are grossly intact. There is no obvious facial asymmetry. Hearing is diminished bilaterally. Motor: The patient is able to move all 4 extremities however does not do this to command. Sensation: The patient withdraws extremities from touch. Deep tendon reflexes: 2+/4+ throughout. Coordination: Not assessed Gait: Not assessed Results - Laboratory Findings CBC and BMP: 06/20/22 17:53 06/20/22 17:53 Abnormal Lab Findings: Abnormal Labs 06/20/22 06/20/22 17:53 19:23 Sodium 133 L BUN 23 H Creatinine 0.51 L Total Protein 6.2 L Albumin 3.4 L Urine Appearance Turbid H Ur Specific [place] 1.042 H Urine Protein 1+ H Urine Ketones 1+ H Urine Blood Large H Ur Leukocyte Esterase Large H Urine RBC >182 H Urine WBC >182 H Urine WBC Clumps Many H Urine Mucus Occasional H Assessment and Plan Assessment: 1. Reported waxing and waning mental status changes, in the setting of a severe urinary tract infection-symptoms consistent with toxic encephalopathy and delirium 2. Reported history of short-term memory deficits 3. Fall, to the knees in January 2022, with resultant tissue injury secondary to cold Plan: 1. Your treatment of urinary tract infection 2. The patient's examination and history of chief complaint are not consistent with stroke or TIA, therefore stroke workup is not indicated 3. Would limit sedating and narcotic medications in the setting of mental status changes Time with Patient: Greater than 30 (spent 40 minutes with patient and daughter via telemedicine)
[2022-06-21] MEDS ORDERED: [UNRECOGNIZED DRUG - OTHER] PO SCH (17:00)
[2022-06-21] MEDS: MAGNESIUM OXIDE 400 MG TAB PO SCH (18:25)
[2022-06-21] MEDS: DEXTROSE 5%-0.45% NACL 1,000 ML IV SCH (18:25)
[2022-06-21] MEDS: FERROUS SULFATE 325 MG TAB PO SCH (18:25)
--- NOTE | 2022-06-21 20:14 | ED ---
Medical Decision Making - Medical Decision Making I did have a conversation with the patient and family members or present. Patient has requested that she be no code and supportive care only. There are papers at her half-way potassium of this also. After long discussion with the family members they've agreed to put disorder and for the patient. - Lab Data Result diagrams: 06/20/22 17:53 06/20/22 17:53 Lab Results 06/20/22 06/20/22 06/20/22 Range/Units 17:53 17:53 17:53 WBC 6.7 (3.8-10.6) k/uL RBC 3.94 (3.80-5.40) m/uL Hgb 11.4 (11.4-16.0) gm/dL Hct 35.5 (34.0-46.0) % MCV 90.3 (80.0-100.0) fL MCH 29.0 (25.0-35.0) pg MCHC 32.1 (31.0-37.0) g/dL RDW 13.7 (11.5-15.5) % Plt Count 339 (150-450) k/uL MPV 6.9 Neutrophils % 67 % Lymphocytes % 23 % Monocytes % 6 % Eosinophils % 2 % Basophils % 1 % Neutrophils # 4.5 (1.3-7.7) k/uL Lymphocytes # 1.5 (1.0-4.8) k/uL Monocytes # 0.4 (0-1.0) k/uL Eosinophils # 0.1 (0-0.7) k/uL Basophils # 0.0 (0-0.2) k/uL PT 10.4 (9.0-12.0) sec INR 1.0 (<1.2) APTT 25.8 (22.0-30.0) sec Sodium 133 L (137-145) mmol/L Potassium 3.8 (3.5-5.1) mmol/L Chloride 98 (98-107) mmol/L Carbon Dioxide 24 (22-30) mmol/L Anion Gap 11 mmol/L BUN 23 H (7-17) mg/dL Creatinine 0.51 L (0.52-1.04) mg/dL Est GFR (CKD-EPI)AfAm >90 (>60 ml/min/1.73 sqM) Est GFR (CKD-EPI)NonAf >90 (>60 ml/min/1.73 sqM) Glucose 99 (74-99) mg/dL Calcium 9.1 (8.4-10.2) mg/dL Total Bilirubin 0.5 (0.2-1.3) mg/dL AST 30 (14-36) U/L ALT 13 (4-34) U/L Alkaline Phosphatase 94 (38-126) U/L Total Protein 6.2 L (6.3-8.2) g/dL Albumin 3.4 L (3.5-5.0) g/dL Triglycerides (0.00-149.00) mg/dL Cholesterol (0.00-200.00) mg/dL LDL Cholesterol, Calc (0.0-131.0) mg/dL VLDL Cholesterol, Calc (5.00-40.00) mg/dL HDL Cholesterol (40.00-60.00) mg/dL Cholesterol/HDL Ratio Ratio Urine Color Urine Appearance (Clear) Urine pH (5.0-8.0) Ur Specific [place] (1.001-1.035) Urine Protein (Negative) Urine Glucose (UA) (Negative) Urine Ketones (Negative) Urine Blood (Negative) Urine Nitrite (Negative) Urine Bilirubin (Negative) Urine Urobilinogen (<2.0) mg/dL Ur Leukocyte Esterase (Negative) Urine RBC (0-5) /hpf Urine WBC (0-5) /hpf Urine WBC Clumps (None) /hpf Urine Mucus (None) /hpf Urine Opiates Screen (NotDetected) Ur Oxycodone Screen (NotDetected) Urine Methadone Screen (NotDetected) Ur Propoxyphene Screen (NotDetected) Ur Barbiturates Screen (NotDetected) U Tricyclic Antidepress (NotDetected) Ur Phencyclidine Scrn (NotDetected) Ur Amphetamines Screen (NotDetected) U Methamphetamines Scrn (NotDetected) U Benzodiazepines Scrn (NotDetected) Urine Cocaine Screen (NotDetected) U Marijuana (THC) Screen (NotDetected) 06/20/22 06/20/22 Range/Units 17:53 19:23 WBC (3.8-10.6) k/uL RBC (3.80-5.40) m/uL Hgb (11.4-16.0) gm/dL Hct (34.0-46.0) % MCV (80.0-100.0) fL MCH (25.0-35.0) pg MCHC (31.0-37.0) g/dL RDW (11.5-15.5) % Plt Count (150-450) k/uL MPV Neutrophils % % Lymphocytes % % Monocytes % % Eosinophils % % Basophils % % Neutrophils # (1.3-7.7) k/uL Lymphocytes # (1.0-4.8) k/uL Monocytes # (0-1.0) k/uL Eosinophils # (0-0.7) k/uL Basophils # (0-0.2) k/uL PT (9.0-12.0) sec INR (<1.2) APTT (22.0-30.0) sec Sodium (137-145) mmol/L Potassium (3.5-5.1) mmol/L Chloride (98-107) mmol/L Carbon Dioxide (22-30) mmol/L Anion Gap mmol/L BUN (7-17) mg/dL Creatinine (0.52-1.04) mg/dL Est GFR (CKD-EPI)AfAm (>60 ml/min/1.73 sqM) Est GFR (CKD-EPI)NonAf (>60 ml/min/1.73 sqM) Glucose (74-99) mg/dL Calcium (8.4-10.2) mg/dL Total Bilirubin (0.2-1.3) mg/dL AST (14-36) U/L ALT (4-34) U/L Alkaline Phosphatase (38-126) U/L Total Protein (6.3-8.2) g/dL Albumin (3.5-5.0) g/dL Triglycerides 83.90 (0.00-149.00) mg/dL Cholesterol 156.00 (0.00-200.00) mg/dL LDL Cholesterol, Calc 93.9 (0.0-131.0) mg/dL VLDL Cholesterol, Calc 16.78 (5.00-40.00) mg/dL HDL Cholesterol 45.30 (40.00-60.00) mg/dL Cholesterol/HDL Ratio 3.44 Ratio Urine Color Yellow Urine Appearance Turbid H (Clear) Urine pH 8.0 (5.0-8.0) Ur Specific [place] 1.042 H (1.001-1.035) Urine Protein 1+ H (Negative) Urine Glucose (UA) Negative (Negative) Urine Ketones 1+ H (Negative) Urine Blood Large H (Negative) Urine Nitrite Negative (Negative) Urine Bilirubin Negative (Negative) Urine Urobilinogen <2.0 (<2.0) mg/dL Ur Leukocyte Esterase Large H (Negative) Urine RBC >182 H (0-5) /hpf Urine WBC >182 H (0-5) /hpf Urine WBC Clumps Many H (None) /hpf Urine Mucus Occasional H (None) /hpf Urine Opiates Screen Not Detected (NotDetected) Ur Oxycodone Screen Not Detected (NotDetected) Urine Methadone Screen Not Detected (NotDetected) Ur Propoxyphene Screen Not Detected (NotDetected) Ur Barbiturates Screen Not Detected (NotDetected) U Tricyclic Antidepress Not Detected (NotDetected) Ur Phencyclidine Scrn Not Detected (NotDetected) Ur Amphetamines Screen Not Detected (NotDetected) U Methamphetamines Scrn Not Detected (NotDetected) U Benzodiazepines Scrn Not Detected (NotDetected) Urine Cocaine Screen Not Detected (NotDetected) U Marijuana (THC) Screen Not Detected (NotDetected) Disposition Clinical Impression: CVA (cerebral vascular accident) Disposition: ADMITTED IP TO THIS [facility] Condition: Fair
[2022-06-21] MEDS: LATANOPROST 0.005% OPHTH DROPS 2.5 ML BTL BOTH EYES SCH (21:49)
[2022-06-22] MEDS: HEPARIN SODIUM,PORCINE/PF 5,000 UNIT/0.5 ML SYRINGE SQ SCH ×2 (09:32→20:27)
[2022-06-22] MEDS: FAMOTIDINE 20 MG/2 ML VIAL IV SCH ×2 (09:32→20:26)
[2022-06-22] MEDS: MAGNESIUM OXIDE 400 MG TAB PO SCH ×2 (09:32→17:41)
[2022-06-22] MEDS: DULoxetine HCL 60 MG CAPSULE.DR PO SCH (09:32)
--- NOTE | 2022-06-22 11:20 | P.PN ---
Subjective Progress Note Date: 06/22/22 The patient is seen in neurologic follow-up on June 22, 2022, via telemetry neurology. The patient reports feeling better today. She still is confused and wonders why she is in the hospital. She reportedly slept well. The patient was seen in neurologic consultation on June 21, 2022 for concerns regarding stroke. CT scan and CT angiogram were negative. Urinalysis revealed evidence of a severe urinary tract infection. Objective - Vital Signs Vital signs: Vital Signs Temp 97.5 F L 06/22/22 07:47 Pulse 82 06/22/22 07:47 Resp 17 06/22/22 07:47 BP 150/82 06/22/22 07:47 Pulse Ox 99 06/22/22 07:47 FiO2 Intake & Output 06/21/22 06/22/22 06/22/22 18:59 06:59 18:59 Intake Total 450 Output Total 450 Balance 450 -450 Weight 62 kg Intake: IV 450 0.9 sodium chloride 450 Output: Urine 450 Other: Voiding Method Incontinent - Exam Gen.: The patient is reclining in the bed. She is well-nourished. She is in no acute distress. HEENT: Head is atraumatic, normocephalic. Fundus not visualized. There is no scleral icterus. Mucous membranes are moist. Neurological examination Mental status: The patient is awake, she is oriented to her name, date of and location. She is unable to state her age. She reports the year to be "1999" and the months be "March". Speech is clear. Cranial nerves: Pupils are equal and reactive. Visual mclean are full to confrontation. Extraocular movements are intact. There is no facial asymmetry. Motor: Patient is moving all 4 extremities. There is no lateralizing weakness. - Labs CBC & Chem 7: 06/20/22 17:53 06/20/22 17:53 Assessment and Plan Assessment: 1. Reported waxing and waning mental status changes, in the setting of a severe urinary tract infection-symptoms consistent with toxic encephalopathy and delirium. Mental status has improved today 2. Reported history of short-term memory deficits 3. Fall, to the knees in January 2022, with resultant tissue injury secondary to cold, per daughter Plan: 1. Your treatment of urinary tract infection 2. The patient's examination and history of chief complaint are not consistent with stroke or TIA, therefore stroke workup is not indicated 3. Would limit sedating and narcotic medications in the setting of mental status changes 4. There is no further neurologic intervention indicated at this time. Neurology will sign off. Please call with questions or concerns. Time with Patient: Less than 30 (spent 20 minutes with patient via telemedicine)
--- NOTE | 2022-06-22 12:35 | P.PN ---
Subjective This is a pleasant 82 is old female with past medical history of hypothyroidism, depression, anemia patient comnes in from [facility] for Altered mental status. Patient is awake and alert and follow-up commands however she thought she is in [facility], she thought is 2013 and she could not remember the name of the president. She thought she lives at home and she walks normal by herself, however per documents patient came in from [facility] for this debility secondary to hip injury. She states she is in hospital because she does not feel good, however she could not elaborate more. Systemic review was negative, she denies headache or dizziness or weakness or numbness. No blurred vision. No chest pain or dyspnea. No diarrhea or vomiting. No abdominal pain. No dysuria or urgency. Patient is nonsmoker, she denies alcohol. She has mild bilateral leg weakness. Vitals stable, afebrile. Labs show an unremarkable CBC, INR, BMP, liver enzymes. Sodium 133. Urine analysis is suspicious for infection Urine drug screen is negative. CT of the brain: No acute intracranial process. CTA of the head: No evidence of acute intracranial hemorrhage, mass effect or midline shift. CT of the neck, no evidence of dissection or acute abnormality Chest x-ray: No acute process. An emergency room patient received ceftriaxone and aspirin Neurologist was consulted for possible stroke 06/22/2012 Patient is more awake and interactive today, she still mildly lethargic, she thought she is at home and she could not tell the year for the name of the per cent however she does not have significant urinary symptoms but she is also poor historian. She follows commands appropriately and she looks calm. She denies any other specific symptoms and she is hemodynamically stable. She remains on Rocephin, urine culture is growing gram-negative bacilli. Although patient improving gradually however she still has poor appetite, we ordered a bladder scan Objective - Vital Signs Vital signs: Vital Signs Temp 97.5 F L 06/22/22 07:47 Pulse 82 06/22/22 07:47 Resp 17 06/22/22 07:47 BP 150/82 06/22/22 07:47 Pulse Ox 99 06/22/22 07:47 FiO2 Intake & Output 06/21/22 06/22/22 06/22/22 18:59 06:59 18:59 Intake Total 450 Output Total 450 Balance 450 -450 Weight 62 kg 62 kg Intake: IV 450 0.9 sodium chloride 450 Output: Urine 450 Other: Voiding Method Incontinent Incontinent - Exam -GENERAL: The patient is alert and oriented 0, follows commands not in any acute distress. Well developed, well nourished. HEENT: Pupils are round and equally reacting to light. EOMI. No scleral icterus. No conjunctival pallor. Normocephalic, atraumatic. No pharyngeal erythema. No thyromegaly. CARDIOVASCULAR: S1 and S2 present. No murmurs, rubs, or gallops. PULMONARY: Chest is clear to auscultation, no wheezing or crackles. ABDOMEN: Soft, nontender, nondistended, normoactive bowel sounds. No palpable organomegaly. MUSCULOSKELETAL: No joint swelling or deformity. EXTREMITIES: No cyanosis, clubbing, or pedal edema. NEUROLOGICAL: Gross neurological examination did not reveal any focal deficits. SKIN: No rashes. no petechiae. - Labs CBC & Chem 7: 06/20/22 17:53 06/20/22 17:53 Labs: Microbiology - Last 24 Hours (Table) 06/20/22 19:23 Urine Culture - Preliminary Urine,Catheterized Gram Neg Bacilli Assessment and Plan Assessment: Acute urinary tract infection Altered mental status, mostly secondary to metabolic/toxic encephalopathy. Resolved Hypothyroidism Depression Anemia Possible elements of dementia Patient with history of carotid artery stenosis Plan: This is a pleasant 82 yo female who presents with acute stroke continue with ceftriaxone follow-up urine culture Check bladder scan Continue with aspirin Neurology consult signed off the case Continue naproxen and avoid NSAIDs Limit narcotics Labs and medication were reviewed.. Continue same treatment. Continue with symptomatic treatment. Resume home medication. Monitor lytes and vitals. DVT and GI prophylaxis. Further recommendations as per clinical course of the patient DVT prophylaxis: Subcutaneous heparin GI Prophylaxis: Pepcid
[2022-06-22] MEDS: DEXTROSE 5%-0.45% NACL 1,000 ML IV SCH (13:44)
[2022-06-22] MEDS: FERROUS SULFATE 325 MG TAB PO SCH (17:41)
[2022-06-22] MEDS: LATANOPROST 0.005% OPHTH DROPS 2.5 ML BTL BOTH EYES SCH (20:54)
[2022-06-23] MEDS: DEXTROSE 5%-0.45% NACL 1,000 ML IV SCH (08:45)
[2022-06-23] MEDS: FAMOTIDINE 20 MG/2 ML VIAL IV SCH (08:45)
[2022-06-23] MEDS: MAGNESIUM OXIDE 400 MG TAB PO SCH ×2 (09:50→17:06)
[2022-06-23] MEDS: HEPARIN SODIUM,PORCINE/PF 5,000 UNIT/0.5 ML SYRINGE SQ SCH ×2 (09:50→20:55)
[2022-06-23] MEDS: DULoxetine HCL 60 MG CAPSULE.DR PO SCH (09:50)
--- NOTE | 2022-06-23 16:56 | XR ---
EXAMINATION TYPE: XR KUB portable DATE OF EXAM: 06/23/2022 COMPARISON: NONE HISTORY: Pain TECHNIQUE: Single view FINDINGS: There is no sign of intestinal obstruction or pneumoperitoneum. Fecal pattern is normal. No evidence of a mass. No pathologic calcifications over the kidneys. There is right hip prosthesis. IMPRESSION: Nonacute abdomen.
[2022-06-23] MEDS: PANTOPRAZOLE 40 MG/10 ML VIAL IVP SCH ×2 (17:06→20:55)
[2022-06-23] MEDS: FERROUS SULFATE 325 MG TAB PO SCH (17:06)
--- NOTE | 2022-06-23 19:31 | P.PN ---
Subjective This is a pleasant 82 is old female with past medical history of hypothyroidism, depression, anemia patient comnes in from [facility] for Altered mental status. Patient is awake and alert and follow-up commands however she thought she is in [facility], she thought is 2013 and she could not remember the name of the president. She thought she lives at home and she walks normal by herself, however per documents patient came in from [facility] for this debility secondary to hip injury. She states she is in hospital because she does not feel good, however she could not elaborate more. Systemic review was negative, she denies headache or dizziness or weakness or numbness. No blurred vision. No chest pain or dyspnea. No diarrhea or vomiting. No abdominal pain. No dysuria or urgency. Patient is nonsmoker, she denies alcohol. She has mild bilateral leg weakness. Vitals stable, afebrile. Labs show an unremarkable CBC, INR, BMP, liver enzymes. Sodium 133. Urine analysis is suspicious for infection Urine drug screen is negative. CT of the brain: No acute intracranial process. CTA of the head: No evidence of acute intracranial hemorrhage, mass effect or midline shift. CT of the neck, no evidence of dissection or acute abnormality Chest x-ray: No acute process. An emergency room patient received ceftriaxone and aspirin Neurologist was consulted for possible stroke 06/22/2012 Patient is more awake and interactive today, she still mildly lethargic, she thought she is at home and she could not tell the year for the name of the per cent however she does not have significant urinary symptoms but she is also poor historian. She follows commands appropriately and she looks calm. She denies any other specific symptoms and she is hemodynamically stable. She remains on Rocephin, urine culture is growing gram-negative bacilli. Although patient improving gradually however she still has poor appetite, we ordered a bladder scan 06/23/2022 Patient is awake alert but confused and, which looks like her baseline she thought she is at her house also she is disoriented to time and person. She cannot remember if she has urinary symptoms, no period but she is complaining from epigastric pain and tenderness today Hemodynamically stable and afebrile Urine culture is growing Morganella morganii which is sensitive to ceftriaxone she is taking She has poor appetite KUB is negative for acute abdomen Liver ultrasound is pending We placed patient on Protonix 40 mg IV twice daily Objective - Vital Signs Vital signs: Vital Signs Temp 98.0 F 06/23/22 12:00 Pulse 82 06/23/22 12:00 Resp 17 06/23/22 12:00 BP 119/73 06/23/22 12:00 Pulse Ox 98 06/23/22 12:00 FiO2 Intake & Output 06/22/22 06/23/22 06/23/22 18:59 06:59 18:59 Intake Total 600 120 Output Total 550 600 Balance 50 -480 Weight 62 kg 65 kg Intake: IV 600 Dextrose 5%-0.45% NaCl 1, 600 000 ml @ 50 mls/hr IV . Q20H MIRNA Rx#:[id number] Oral 120 Output: Urine 550 600 Other: Voiding Method Incontinent Incontinent External Catheter # Voids 0 # Bowel Movements 1 - Exam -GENERAL: The patient is alert and oriented 0, follows commands not in any a cute distress. Well developed, well nourished. HEENT: Pupils are round and equally reacting to light. EOMI. No scleral icterus. No conjunctival pallor. Normocephalic, atraumatic. No pharyngeal erythema. No thyromegaly. CARDIOVASCULAR: S1 and S2 present. No murmurs, rubs, or gallops. PULMONARY: Chest is clear to auscultation, no wheezing or crackles. -ABDOMEN: Soft, Mild epigastric tenderness, no rebound tenderness, nondistended, normoactive bowel sounds. No palpable organomegaly. MUSCULOSKELETAL: No joint swelling or deformity. EXTREMITIES: No cyanosis, clubbing, or pedal edema. NEUROLOGICAL: Gross neurological examination did not reveal any focal deficits. SKIN: No rashes. no petechiae. - Labs CBC & Chem 7: 06/20/22 17:53 06/20/22 17:53 Labs: Microbiology - Last 24 Hours (Table) 06/20/22 19:23 Urine Culture - Final Urine,Catheterized Morganella morganii 06/21/22 10:38 Blood Culture - Preliminary Blood No Growth after 48 hours Assessment and Plan Assessment: Acute urinary tract infection Epigastric pain and tenderness Altered mental status, mostly secondary to metabolic/toxic encephalopathy. Resolved Hypothyroidism Depression Anemia Possible elements of dementia Patient with history of carotid artery stenosis Plan: This is a pleasant 82 yo female who presents with acute stroke continue with ceftriaxone follow-up urine culture Check bladder scan Continue with aspirin Neurology consult signed off the case Continue naproxen and avoid NSAIDs Follow-up liver ultrasound Labs and medication were reviewed.. Continue same treatment. Continue with symptomatic treatment. Resume home medication. Monitor lytes and vitals. DVT and GI prophylaxis. Further recommendations as per clinical course of the patient DVT prophylaxis: Subcutaneous heparin GI Prophylaxis: Pepcid
[2022-06-23] MEDS: LATANOPROST 0.005% OPHTH DROPS 2.5 ML BTL BOTH EYES SCH (20:55)
[2022-06-23] MEDS ORDERED: FAMOTIDINE 20 MG TAB PO SCH (21:00)
[2022-06-24] MEDS: DEXTROSE 5%-0.45% NACL 1,000 ML IV SCH (03:19)
--- NOTE | 2022-06-24 08:09 | US ---
EXAMINATION TYPE: US liver DATE OF EXAM: 06/24/2022 COMPARISON: CT CLINICAL HISTORY: epigastric pain. Epigastric pain. Hx appendectomy. Patient gave limited history. TECHNIQUE: Multiple sonographic images of the right upper quadrant are obtained. FINDINGS: EXAM MEASUREMENTS: Liver Length: 13.6 cm. Very limited measurement. 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 Pancreas: Limited visibility. Liver: Very limited visibility, all images of right lobe taken intercostally. Appears heterogeneous . Gallbladder: Not seen. Evidence for sonographic Pagan's sign: No CBD: Obscured. Right Kidney: Limited. No abnormalities seen. IMPRESSION: Limited study however no distinct abnormality appreciated. Nonvisualization of the gallbladder.
[2022-06-24] MEDS: DULoxetine HCL 60 MG CAPSULE.DR PO SCH (08:42)
[2022-06-24] MEDS: HEPARIN SODIUM,PORCINE/PF 5,000 UNIT/0.5 ML SYRINGE SQ SCH (08:42)
[2022-06-24] MEDS: PANTOPRAZOLE 40 MG/10 ML VIAL IVP SCH (08:42)
[2022-06-24] MEDS: MAGNESIUM OXIDE 400 MG TAB PO SCH (08:42)
[2022-06-24] MEDS ORDERED: SODIUM CHLORIDE 0.9% 500 ML 500 ML IV ONE (12:39)
--- NOTE | 2022-06-24 12:42 | P.DS ---
Providers Date of admission: 06/20/22 20:10 Attending physician: Pablito Thibodeaux Consults: 06/20/22 20:11 Consult Physician Routine Consulting Provider: Moises Rachel Consult Reason/Comments: cva Do you want consulting provider notified?: Yes Primary care physician: Parvez Gregorio [facility] Course: Diagnoses: Acute urinary tract infection Altered mental status, mostly secondary to metabolic/toxic encephalopathy. Resolved Hypothyroidism Depression Anemia Possible elements of dementia Patient with history of carotid artery stenosis Hospital course: This is a pleasant 82 is old female with past medical history of hypothyroidism, depression, anemia patient comnes in from [facility] for Altered mental status. Patient was found to have UTI secondary to Morganella morganii which is sensitive to ceftriaxone she was receiving in the hospital, patient showed interval improvement and her mentation is improved back on a close to baseline. Neurologist cleared the patient for discharge already with workup was unremarkable. She will benefit from short course of oral antibiotics upon discharge. Thomas catheter placed on admission was removed and postvoid residual was only 35 mL. Hypertension improved with IV fluid. Patient tolerates diet well with no problems. She has some mild epigastric pain yesterday which is completely resolved today. KUB on liver ultrasound were unremarkable. Problems and management plan were discussed with the patient and he verbalized understanding and acceptance Patient was found stable and can be discharged to her [facility] and guarded prognosis however he needs follow-up as an outpatient. Patient was instructed to follow up with PCP Dr. Acevedo within one week and patient agrees Physical exam -Gen: patient is a AAOx3, no distress, obese CVS: S1-S2, RRR, no murmur Lungs: B/L CTA, no wheezing Abdomen: soft, no distention, no tenderness, positive bowel sounds Extremity: no leg edema or induration Time spent more than 35 minutes Patient Condition at Discharge: Fair Plan - Discharge Summary New Discharge Prescriptions: New cefUROXime axetiL [Cefuroxime] 500 mg PO BID 5 Days #10 tab Continue Latanoprost [Xalatan 0.005%] 1 drop BOTH EYES HS [place] Breakfast Essentials 1 packet PO BID@0800,1700 Acetaminophen Tab [Tylenol] 650 mg PO Q4H PRN PRN Reason: Pain Mag Hydrox/Al Hydrox/Simeth [Maalox] 30 ml PO Q6H PRN PRN Reason: Gi Upset Na Phos,M-B/Na Phos,Di-Ba [Fleet Adult] 133 ml RECTAL DAILY PRN PRN Reason: Constipation Sennosides/Docusate Sodium [Senna-S 8.6-50 mg Tablet] 2 tab PO HS PRN PRN Reason: Constipation bisacodyL [Dulcolax] 10 mg RECTAL DAILY PRN PRN Reason: Constipation DULoxetine HCL [Cymbalta] 60 mg PO DAILY@0800 Ferrous Sulfate [Iron (65 MG Elemental)] 325 mg PO DAILY@1700 Magnesium Hydroxide [Milk of Magnesia Concentrate] 7,200 mg PO Q48H PRN PRN Reason: Constipation Magnesium Oxide [Mag-Ox] 400 mg PO BID@0800,1700 Discontinued Acetaminophen-Codeine 300-30mg [Tylenol w/codeine #3] 1 tab PO Q6H PRN PRN Reason: Pain traMADol HCL 50 mg PO Q6H PRN PRN Reason: Pain Magic Cup 1 dose PO DAILY@1200 Naproxen [Naprosyn] 500 mg PO BID@0800,1700 Discharge Medication List Latanoprost [Xalatan 0.005%] 1 drop BOTH EYES HS 05/23/21 [History] Acetaminophen Tab [Tylenol] 650 mg PO Q4H PRN 06/20/22 [History] [place] Breakfast Essentials 1 packet PO BID@0800,1700 06/20/22 [History] DULoxetine HCL [Cymbalta] 60 mg PO DAILY@0800 06/20/22 [History] Ferrous Sulfate [Iron (65 MG Elemental)] 325 mg PO DAILY@1700 06/20/22 [History] Mag Hydrox/Al Hydrox/Simeth [Maalox] 30 ml PO Q6H PRN 06/20/22 [History] Magnesium Hydroxide [Milk of Magnesia Concentrate] 7,200 mg PO Q48H PRN 06/20/22 [History] Magnesium Oxide [Mag-Ox] 400 mg PO BID@0800,1700 06/20/22 [History] Na Phos,M-B/Na Phos,Di-Ba [Fleet Adult] 133 ml RECTAL DAILY PRN 06/20/22 [History] Sennosides/Docusate Sodium [Senna-S 8.6-50 mg Tablet] 2 tab PO HS PRN 06/20/22 [History] bisacodyL [Dulcolax] 10 mg RECTAL DAILY PRN 06/20/22 [History] cefUROXime axetiL [Cefuroxime] 500 mg PO BID 5 Days #10 tab 06/24/22 [Rx] Follow up Appointment(s)/Referral(s): Parvez Gregorio MD [Primary Care Provider] - 1-2 days Activity/Diet/Wound Care/Special Instructions: resume previous diet Activity as tolerated Discharge Disposition: TRANSFER TO SNF/ECF
[2022-06-24 14:02] VITALS: BP 108/53; PULSE 84; RESP 15; TEMP 98.3
== END 2022-06-24 18:17 | DRG 689 ==
LOC: EC 17:01 → 3SCARD 20:10 → 4SSUR 06-21 15:56
PROVIDERS: ADMIT Hospitalist; ATTEND Hospitalist
DX: N39.0 Urinary tract infection, site not specified (principal); G92.8 Other toxic encephalopathy; R47.01 Aphasia; F05 Delirium due to known physiological condition; B96.4 Proteus (mirabilis) (morganii) as the cause of diseases classified elsewhere; I10 Essential (primary) hypertension; E03.9 Hypothyroidism, unspecified; F32.A Depression, unspecified; I65.29 Occlusion and stenosis of unspecified carotid artery; D64.9 Anemia, unspecified; F03.90 Unspecified dementia, unspecified severity, without behavioral disturbance, psychotic disturbance, mood disturbance, and anxiety; Z79.899 Other long term (current) drug therapy; Z90.710 Acquired absence of both cervix and uterus; Z20.822 Contact with and (suspected) exposure to COVID-19; Z79.890 Hormone replacement therapy
CPT/HCPCS: 36415; 70450; 70496; 70498; 71045; 73521; 74018; 76705; 80053; 80061; 80306; 81001; 85025; 85610; 85730; 87040; 87077; 87086; 87186; 87635; 93005; 96365; 96375; 99285